=== PATIENT | female | born 1955 | race Caucasian/White ===

== ENCOUNTER 2016-07-15 02:30 | Emergency (ER) | payer MEDICAID, OTHER ==
[~2016-07-15] VITALS: Ht 175.3 cm; Wt 117.9 kg
[2016-07-15 02:41] VITALS: BP 128/90
== END 2016-07-15 02:59 | disposition home or self-care (01) ==
LOC: ER 02:31
DX: K08.89 Other specified disorders of teeth and supporting structures (principal); F17.210 Nicotine dependence, cigarettes, uncomplicated